=== PATIENT | male | born 1990 | race Caucasian/White ===

== ENCOUNTER → 2016-08-13 | Outpatient (CLI) | payer OTHER | LOC: CIMAGING 14:29 | PROVIDERS: ATTEND Physical Medicine & Rehabilitation | DX: M25.562 Pain in left knee (principal); X50.0XXA Overexertion from strenuous movement or load, initial encounter | CPT/HCPCS: 73564-PO ==

== ENCOUNTER 2018-08-26 14:29 | Emergency (ER) | payer OTHER | END 2018-08-26 15:36 | disposition home or self-care (01) | LOC: CED 14:29 ==